=== PATIENT | male | born 1970 | race Two or more races ===

== ENCOUNTER 2016-09-25 12:56 | Emergency (ER) | payer BC ==
--- NOTE | ~2016-09-25 | ER ---
PATIENT'S NAME: [facility] AGE: 45 Y [address] ROOM: [place] [address] LOCATION: [facility] ADMIT DATE: 09/25/2016 ER/Outpatient Report DISCHARGE DATE: 09/25/2016 FAMILY PHYSICIAN: PHYSICIAN, NO ATTENDING PHYSICIAN: Yoselin Clayton SEEN AT: 1320 hours. CHIEF COMPLAINT: Headache. HISTORY OF PRESENT ILLNESS: The patient is a 45-year-old male, who said he has had increased frequent headaches. He said about 2 weeks ago, he had a severe headache. Then, within the last 24 hours, he has had another headache, which he states comes on fairly sudden. This headache, he said, woke him up during the night. Headache is not accompanied by any vomiting, numbness, tingling, or photophobia. Usually starts in the back of his neck and then becomes frontal. ALLERGIES: HE HAS NO MEDICINAL ALLERGIES. CURRENT MEDICATIONS: Has used ibuprofen and Tylenol without much success for relieving his headaches. MEDICAL HISTORY: Negative for any diabetes or high blood pressure. SOCIAL HISTORY: Denies any drug or alcohol use. He does work at [employer]. FAMILY HISTORY: Unremarkable for any aneurysms or brain tumors. REVIEW OF SYSTEMS: GENERAL: No fevers or chills. HEAD/EENT: Frequent headaches usually starts in the back of his neck area. He has had some associated mild photophobia. RESPIRATORY: Negative. CARDIOVASCULAR: Negative. GASTROINTESTINAL: No nausea or vomiting. NEURO/PSYCH: No numbness or tingling to his extremities. PATIENT'S NAME: REGIS [facility] AGE: 45 Y [address] ROOM: [place] [address] LOCATION: [facility] ADMIT DATE: 09/25/2016 ER/Outpatient Report DISCHARGE DATE: 09/25/2016 FAMILY PHYSICIAN: PHYSICIAN, NO ATTENDING PHYSICIAN: Yoselin Clayton OBJECTIVE: VITAL SIGNS: His initial blood pressure is 160/105, his temperature is 98.7, his respiratory rate 16, pulse 94, and O2 saturations 96%. GENERAL APPEARANCE: Alert and oriented. HEAD: Normocephalic. EYES: PERRL. Reactive to light. No nystagmus. NECK: Supple. No adenopathy. LUNGS: Sounded clear. HEART: Regular rhythm. LABORATORY DATA AND X-RAYS: CT of his head, no abnormal findings were noted by Radiology. CMS: He had elevated of his sugar, glucose at 205, also slight elevation of his alkaline phosphatase at 166 as well as AST at 49. ASSESSMENT: 1. Headache, probable tension related. 2. Elevated glucose and AST. 3. Elevated blood pressure. PLAN: He was given Toradol here in the emergency room 60 mg, which did relieve his headache. The patient advised to try and take 800 of ibuprofen right at the onset of his headache, then repeat in 6 to 8 hours. Recommended he follow up with his family doctor, recheck of his blood pressure as well as his blood glucose and AST. The patient verbalized understanding of lab and CT findings and agreed with the plan. AALN CASEY FOR MD SHAW ARTIS/shane /[id number] d: 09/25/[id number] t: 10/03/161925, OUTPATIENT REPORT
[2016-09-25 13:59] LABS: BASOPHIL % 0.4 %; EOSINOPHIL % 15.3 %; HEMATOCRIT 44.2 % (37.0-53.0); HEMOGLOBIN 14.6 g/dL (12.0-17.0); IMMATURE GRANULOCYTE % 0.1 %; LYMPHOCYTE # 1.7 K/uL (0.8-4.0); LYMPHOCYTE % 25.3 %; MCH 29.4 pg (27.0-34.0); MCV 89.1 fl (83.0-98.0); MONOCYTE # 0.4 K/uL (0.0-1.0); MONOCYTE % 6.2 %; MPV 9.9 fl (9.4-12.4); NEUTROPHIL # (ANC) 3.5 K/uL (1.4-9.0); NEUTROPHIL % 52.7 %; NRBC % 0 /100WBC (0-0.00); PLATELET COUNT 173 K/uL (150-450); RBC 4.96 M/uL (4.00-6.00); RDW-CV 13.2 % (11.9-14.6); WBC 6.7 K/uL (4.0-11.0)
[2016-09-25 14:14] LABS: ALK PHOS 166 IU/L (33-138); ALT 71 IU/L (12-78); BLOOD UREA NITROGEN 15 mg/dL (6-24); CALCIUM 8.5 mg/dL (8.5-10.5); CHLORIDE 107 mMol/L (96-110); CO2 23 mMol/L (22-32); ESTIMATED GFR (MDRD EQUATION) > 60; SODIUM 139 mMol/L (135-145); TOTAL BILIRUBIN 0.4 mg/dL (0.0-1.5); TOTAL PROTEIN 7.9 g/dL (6.0-8.4)
[2016-09-25 14:16] LABS: ANION GAP 13.1 (10.0-19.0); AST 49 IU/L (10-40); POTASSIUM 4.1 mMol/L (3.7-5.1)
== END 2016-09-25 14:54 | disposition disaster alternative care site (69) ==
LOC: GMED 12:56
PROVIDERS: Family Medicine
DX: R51 Headache (principal); I10 Essential (primary) hypertension; R73.9 Hyperglycemia, unspecified; Z79.899 Other long term (current) drug therapy
CPT/HCPCS: J1885